=== PATIENT | female | born 1970 | race Caucasian/White ===

== ENCOUNTER 2018-03-01 07:42 | Outpatient (CLI) | payer OTHER ==
[~2018-03-01 07:42] MED LIST: [UNRECOGNIZED DRUG - OTHER]
== END 2018-03-01 17:46 | disposition home or self-care (01) ==
LOC: NUCLEAR 07:42
DX: R10.13 Epigastric pain (principal); R12 Heartburn; K30 Functional dyspepsia; R14.0 Abdominal distension (gaseous); K59.09 Other constipation; R11.0 Nausea; K62.5 Hemorrhage of anus and rectum; K62.89 Other specified diseases of anus and rectum; K76.0 Fatty (change of) liver, not elsewhere classified; R16.0 Hepatomegaly, not elsewhere classified
CPT/HCPCS: 78264; A9541

== ENCOUNTER 2018-07-18 15:00 | Outpatient (CLI) | payer OTHER | END 2018-07-18 15:06 | disposition home or self-care (01) | LOC: LAB 15:00 | DX: K44.9 Diaphragmatic hernia without obstruction or gangrene (principal); Z51.81 Encounter for therapeutic drug level monitoring ==

== ENCOUNTER 2018-07-23 08:53 | Outpatient (CLI) | payer OTHER | END 2018-07-23 09:03 | disposition home or self-care (01) | LOC: TOM 08:53 | DX: R14.0 Abdominal distension (gaseous) (principal); K59.09 Other constipation; K44.9 Diaphragmatic hernia without obstruction or gangrene; K29.70 Gastritis, unspecified, without bleeding; R12 Heartburn; R16.0 Hepatomegaly, not elsewhere classified; R11.0 Nausea; K20.8 Other esophagitis; K64.8 Other hemorrhoids; K76.0 Fatty (change of) liver, not elsewhere classified; K31.84 Gastroparesis; E73.8 Other lactose intolerance ==

== ENCOUNTER 2018-08-01 08:44 | Outpatient (CLI) | payer OTHER | END 2018-08-01 15:13 | disposition home or self-care (01) | LOC: RX STUDY 08:44 | DX: R14.0 Abdominal distension (gaseous) (principal); K59.09 Other constipation; K44.9 Diaphragmatic hernia without obstruction or gangrene; R10.13 Epigastric pain; R12 Heartburn; R16.0 Hepatomegaly, not elsewhere classified; R11.0 Nausea; K20.8 Other esophagitis; K64.8 Other hemorrhoids; K76.0 Fatty (change of) liver, not elsewhere classified; K31.84 Gastroparesis; E73.8 Other lactose intolerance; K29.60 Other gastritis without bleeding ==

== ENCOUNTER → 2021-09-16 | Outpatient (CLI) | payer OTHER | END | disposition home or self-care (01) | LOC: PPH VACUNA 08:00 | PROVIDERS: ATTEND Emergency Medicine Pediatric Emergency Medicine | DX: Z23 Encounter for immunization (principal) ==